=== PATIENT | female | born 1980 | race Caucasian/White ===

== ENCOUNTER → 2021-09-18 | Outpatient (CLI) | payer OTHER ==
[2021-09-18 17:59] LABS: RED BLOOD COUNT 4.38 M/UL (4.00-5.10); WHITE BLOOD COUNT 7.8 K/UL (4.5-11.0)
[2021-09-18 18:17] LABS: BUN/CREATININE RATIO 18 (0-10)
[2021-09-20 08:14] LABS: THYROXINE (T4) 8.4 ug/dL (4.5-12.0); VITAMIN D, 25-HYDROXY 43.7 ng/mL (30.0-100.0)
== END ==
LOC: LAB 17:21
PROVIDERS: Nurse Practitioner Family
DX: E04.9 Nontoxic goiter, unspecified (principal); R53.83 Other fatigue; Z13.220 Encounter for screening for lipoid disorders; U09.9 Post COVID-19 condition, unspecified; E55.9 Vitamin D deficiency, unspecified
CPT/HCPCS: 36415; 80053; 80061; 82607; 82746; 84436; 84443; 85025